=== PATIENT | female | born 1975 | race Caucasian/White ===

== ENCOUNTER 2024-01-08 16:30 | Emergency (ER) | payer BC ==
[~2024-01-08] VITALS: Ht 162.6 cm; Wt 100.5 kg
[2024-01-08 16:30] VITALS: TEMP 97.1
[2024-01-08 19:25] VITALS: BP 132/79; PULSE 85
== END 2024-01-08 19:25 | disposition home or self-care (01) ==
LOC: COL.ER 16:30
DX: S93.402A Sprain of unspecified ligament of left ankle, initial encounter (principal); S00.03XA Contusion of scalp, initial encounter; W01.198A Fall on same level from slipping, tripping and stumbling with subsequent striking against other object, initial encounter; X50.1XXA Overexertion from prolonged static or awkward postures, initial encounter